=== PATIENT | female | born 1990 | race Caucasian/White ===

== ENCOUNTER 2016-10-12 19:57 | Emergency (ER) | payer MEDICAID ==
[~2016-10-12] VITALS: Ht 154.9 cm; Wt 47.6 kg
[2016-10-12 20:05] VITALS: BP_SYST 119
== END 2016-10-12 20:29 | disposition left against medical advice (07) ==
LOC: SED 19:57
DX: R21 Rash and other nonspecific skin eruption (principal); Z53.21 Procedure and treatment not carried out due to patient leaving prior to being seen by health care provider

== ENCOUNTER 2017-04-16 20:26 | Emergency (ER) | payer MEDICAID ==
[~2017-04-16] VITALS: Ht 154.9 cm; Wt 49.0 kg
[2017-04-16 20:35] VITALS: BP_SYST 133
[2017-04-16] MEDS ORDERED: cefTRIAXone 1 GM in LIDOCAINE 1%, 20 ML MDV 2.1 ML IM ONE (21:00)
[2017-04-16] MEDS ORDERED: ACETAMINOPHEN WITH CODEINE 12.5 ML UDC PO ONE (21:00)
[2017-04-16 21:21] VITALS: BP_SYST 131
== END 2017-04-16 21:21 | disposition home or self-care (01) ==
LOC: SED 20:26
DX: J06.9 Acute upper respiratory infection, unspecified (principal); R03.0 Elevated blood-pressure reading, without diagnosis of hypertension
CPT/HCPCS: 96372; 99283; J0696; J2001

== ENCOUNTER 2017-09-11 09:26 | Emergency (ER) | payer MEDICAID ==
[~2017-09-11] VITALS: Ht 154.9 cm; Wt 46.7 kg
[2017-09-11 09:49] VITALS: BP_SYST 110
== END 2017-09-11 12:08 | disposition home or self-care (01) ==
LOC: SED 09:26
DX: B00.1 Herpesviral vesicular dermatitis (principal); Z88.0 Allergy status to penicillin
CPT/HCPCS: 99283

== ENCOUNTER 2019-05-18 12:18 | Emergency (ER) | payer MEDICAID ==
[~2019-05-18] VITALS: Ht 157.5 cm; Wt 52.2 kg
--- NOTE | 2019-05-18 12:30 | NUR ---
Patient to ER bed 3 to gown for evaluation. Side rails up.
--- NOTE | 2019-05-18 12:31 | NUR ---
ER at bedside examining patient.
[2019-05-18] MEDS ORDERED: NACL 0.9% 1,000 ML IV ONE ×2 (12:33→15:15)
--- NOTE | 2019-05-18 12:35 | NUR ---
Pt brought in by sister after experiencing generalized weakness, n/v/d, and dizziness in the morning at work. Pt AO4, RR even and unlabored, no s/s of distress at this time
[2019-05-18 12:36] VITALS: BP_SYST 105
--- NOTE | 2019-05-18 12:42 | NUR ---
# 22 gauge angiocath placed to LAC. Use of asceptic technique. Opsite placed over site. Blood return noted. Blood for lab drawn from site. Flushed with 10 cc of normal saline. No evidence of infiltration noted. Patient tolerated well.
[2019-05-18] MEDS ORDERED: ONDANSETRON HCL 4 MG/2 ML VIAL IVP ONE (12:45)
[2019-05-18] MEDS ORDERED: NALOXONE HCL 2 MG/2 ML SYR IVP ONE (12:45)
--- NOTE | 2019-05-18 13:00 | NUR ---
Administered IV fluids and medications per MD orders
[2019-05-18 13:18] LABS: BASOPHILS % (AUTO) 0.4 % (0.0-2.0); EOSINOPHILS % (AUTO) 0.4 % (0.0-4.0); HEMATOCRIT 40.9 % (36-48); HEMOGLOBIN 14.6 g/dL (12.0-16.0); LYMPHOCYTES # (AUTO) 0.4 K/uL (1.0-5.5); MEAN CORPUSCULAR HEMOGLOBIN 33 pg (27-31); MEAN CORPUSCULAR HGB CONC 36 % (32-36); MEAN CORPUSCULAR VOLUME 94 fL (79.0-98.0); MONOCYTES # (AUTO) 0.4 K/uL (0.0-1.0); MONOCYTES % (AUTO) 4.4 % (1.7-9.3); NEUTROPHILS # (AUTO) 8.3 K/uL (1.8-7.7); NEUTROPHILS % (AUTO) 90.8 % (40.0-70.0); PLATELET COUNT (AUTO) 211 K/uL (130-430); RED BLOOD CELL COUNT(AUTO) 4.37 MIL/uL (4.2-6.2); RED CELL DISTRIBUTION WIDTH 13.2 % (9.0-15.0); WHITE BLOOD COUNT (AUTO) 9.1 K/uL (4.8-10.8)
[2019-05-18 13:27] LABS: ANION GAP 7 (5-15); CALCIUM 8.1 mg/dL (8.4-11.0); CHLORIDE 102 mmol/L (98-107); CREATININE 0.77 mg/dL (0.55-1.30); GLUCOSE 118 mg/dL (70-99); POTASSIUM 4.1 mmol/L (3.5-5.1); SODIUM SERUM 135 mmol/L (136-145); UREA NITROGEN, BLOOD 20 mg/dL (8-21)
[2019-05-18 13:30] LABS: GFR AFRICAN AMERICAN 113 mL/min (>90)
[2019-05-18 13:41] LABS: ALANINE AMINOTRANSFERASE 20 U/L (12-78); ALBUMIN 4.3 g/dL (3.4-4.8); AMYLASE 81 U/L (0-100); ASPARTATE AMINOTRANSFERASE 15 U/L (10-37); LIPASE 115 U/L (73-393); TOTAL BILIRUBIN 1.2 mg/dL (0.0-1.0)
[2019-05-18 13:43] LABS: ALCOHOL, BLOOD < 3 mg/dL (<10)
--- NOTE | 2019-05-18 14:15 | NUR ---
urine sample collected and sent to the lab
[2019-05-18] MEDS ORDERED: MAG HYDROX/AL HYDROX/SIMETH 30 ML, DICYCLOMINE HCL 20 MG, LIDOCAINE VISCOUS 2% 15ML (PO... PO ONE ×3 (14:30)
[2019-05-18 14:31] LABS: BILIRUBIN,URINE NEGATIVE (NEGATIVE); BLOOD, URINE 1+ (NEGATIVE); CLARITY/URINE CLEAR (CLEAR); COLOR,URINE YELLOW (YELLOW); GLUCOSE,URINE NEGATIVE (NEGATIVE); KETONES,URINE 1+ (NEGATIVE); LEUKOCYTE ESTERASE ,URINE NEGATIVE (NEGATIVE); NITRITE, URINE NEGATIVE (NEGATIVE); PROTEIN URINE NEGATIVE (NEGATIVE); UROBILINOGEN,URINE 0.2 (0.2-1.0)
[2019-05-18] MEDS: ACETAMINOPHEN 325 MG TABLET PO ONE ×2 (14:31→15:16)
[2019-05-18 14:45] LABS: PROTHROMBIN TIME 10.2 SECS (9.5-12.5)
[2019-05-18 14:49] LABS: BARBITURATE, URINE NEGATIVE (NEG <=200); BENZODIAZEPINE, URINE NEGATIVE (NEG <=150); CANNABINOID, URINE NEGATIVE (NEG <=50); COCAINE, URINE NEGATIVE (NEG <=150); METHAMPHETAMINES SCREEN,URINE NEGATIVE (NEG <=500); OPIATE, URINE NEGATIVE (NEG <=100); PHENCYCLIDINE SCREEN,URINE NEGATIVE (NEG <=25); UR TRICYCLIC ANTIDEPRESSANTS NEGATIVE (NEG <=300); URINE AMPHETAMINE NEGATIVE (NEG <=500); URINE METHADONE NEGATIVE (NEG <=200); URINE OXYCODONE SCREEN NEGATIVE (NEG <=100); URINE PROPOXYPHENE SCREEN NEGATIVE (NEG <=300)
[2019-05-18 14:56] LABS: BACTERIA,URINE FEW /HPF (None Seen); MUCUS,URINE 1+ /LPF (None Seen)
--- NOTE | 2019-05-18 15:20 | NUR ---
Medicated the pt w/ Tylenol per MD order will reassess.
--- NOTE | 2019-05-18 15:22 | NUR ---
2n NS L currently infusing per MD order.
[2019-05-18 16:36] VITALS: BP_SYST 103
--- NOTE | 2019-05-18 16:37 | NUR ---
Patient given written and verbal discharge instructions and verbalizes understanding. ER MD discussed with patient the results and treatment provided. Patient in stable condition. ID arm band removed. IV catheter removed intact and dressing applied, no active bleeding. Rx of tramadol, zofran, and ranitidine given. Patient educated on pain management and to follow up with PMD. Pain Scale 0. Opportunity for questions provided and answered. Medication side effect fact sheet provided.
== END 2019-05-18 16:37 | disposition home or self-care (01) ==
LOC: SED 12:18
DX: K52.9 Noninfective gastroenteritis and colitis, unspecified (principal); R10.13 Epigastric pain; E80.6 Other disorders of bilirubin metabolism; F41.9 Anxiety disorder, unspecified; G43.911 Migraine, unspecified, intractable, with status migrainosus; R11.2 Nausea with vomiting, unspecified; Z88.0 Allergy status to penicillin
CPT/HCPCS: 36415; 71045; 80053; 80307; 81000; 82150; 82550; 83605; 83690; 84484; 85025; 85610; 85730; 87086; 93005; 96361; 96374; 96375; 99284; G0481; G0482; J2001; J2310; J2405; J7030